=== PATIENT | female | born 1955 | race African-American/Black ===

== ENCOUNTER 2019-05-01 11:32 | Inpatient (IN) | payer MEDICAID ==
[~2019-05-01] VITALS: Ht 162.6 cm; Wt 151.5 kg
--- NOTE | 2019-05-01 11:38 | NUR ---
ED Nurse Note: Pt brought into ED w/ c/o SOB due to asthma. Pt states it has gotten worse for past 3 days. Pt also states she has trouble urinating. Pt is alert and orientedx4, ambulatory w/ cane. Pt had fall 5 days ago and injured pain L arm pain 7/10.
[2019-05-01] MEDS ORDERED: Albuterol/Ipratropium 3ml neb HHN ONE ×2 (11:45→13:15)
[2019-05-01] MEDS ORDERED: Solu-MEDROL 125mg Inj IVP ONE (11:45)
--- NOTE | 2019-05-01 11:45 | Emergency Room Report ---
History of Present Illness General Chief Complaint: Asthma Source: Patient Present Illness HPI Patient is a 64-year-old female presents after increased difficulty breathing for 1 week. Patient a prior history of asthma. She states that she takes albuterol only. Denies any recent fever. Reports having a moderate headache. Had no prior history of cardiac failure. She has some prior history of hypertension. Denies any recent leg pain or swelling. Had gradually worsening difficulty with breathing. She was brought in by EMS and was given breathing treatments in route without any improvement. She denies being a smoker. Patient denies any recent travel. COVID-19 risk:Travel to affect: No Has patient experienced tay: No Coronavirus symptoms experienc: Shortness of Breath Allergies: Coded Allergies: No Known Allergies (Unverified , 05/01/19) Patient History Past Medical History: see triage record Now: No Reviewed Nursing Documentation: PMH: Agreed; PSxH: Agreed Review of Systems All Other Systems: negative except mentioned in HPI Physical Exam Vital Signs Date Time Temp Pulse Resp B/P (MAP) Pulse Ox O2 Delivery O2 Flow Rate FiO2 05/01/19 11:24 97.9 84 18 144/74 (97) 98 Room Air Sp02 EP Interpretation: reviewed, normal General Appearance: normal inspection, alert, GCS 15, moderate distress, obese Head: atraumatic ENT: normal ENT inspection, hearing grossly normal, normal voice Neck: normal inspection, full range of motion, supple, no bony tend Respiratory: no respiratory distress, no retraction, no wheezing, wheezing Cardiovascular #1: regular rate, rhythm, no edema Gastrointestinal: normal inspection, normal bowel sounds, non tender, soft, no guarding, no hernia Genitourinary: no CVA tenderness Musculoskeletal: normal inspection, back normal, normal range of motion Neurologic: alert, motor strength/tone normal, physicist light and optics III-XII nml as tested, oriented x3, responsive, speech normal, normal inspection Psychiatric: normal inspection, judgement/insight normal, mood/affect normal Medical Decision Making Diagnostic Impression: Primary Impression: Asthma attack Additional Impression: Leukopenia ER Course patient presented for shortness of breath. DIfferential included but was not limited to anemia, pneumonia, pneumothorax, myocardial infarction, pericardial effusion, congestive heart failure, acidosis. Because of complexity of patient' s case laboratory tests and imaging studies were ordered.Chest x-ray read by radiology showed cardiomegaly with increased vascular congestion. Troponin was noted to be negative. Patient's laboratory testing showed some leukopenia. Dr. Billy Bae was contacted for inpatient managment due to Panel physician. Labs Test 05/01/19 11:38 05/01/19 13:10 White Blood Count 3.9 K/UL (4.8-10.8) Red Blood Count 4.70 M/UL (4.20-5.40) Hemoglobin 14.8 G/DL (12.0-16.0) Hematocrit 41.9 % (37.0-47.0) Mean Corpuscular Volume 89 FL (80-99) Mean Corpuscular Hemoglobin 31.5 PG (27.0-31.0) Mean Corpuscular Hemoglobin Concent 35.3 G/DL (32.0-36.0) Red Cell Distribution Width 11.4 % (11.6-14.8) Platelet Count 163 K/UL (150-450) Mean Platelet Volume 6.7 FL (6.5-10.1) Neutrophils (%) (Auto) 72.2 % (45.0-75.0) Lymphocytes (%) (Auto) 20.4 % (20.0-45.0) Monocytes (%) (Auto) 6.5 % (1.0-10.0) Eosinophils (%) (Auto) 0.0 % (0.0-3.0) Basophils (%) (Auto) 0.9 % (0.0-2.0) Prothrombin Time 10.6 SEC (9.30-11.50) Prothromb Time International Ratio 1.0 (0.9-1.1) Activated Partial Thromboplast Time 29 SEC (23-33) Sodium Level 138 MMOL/L (136-145) Potassium Level 3.4 MMOL/L (3.5-5.1) Chloride Level 100 MMOL/L (98-107) Carbon Dioxide Level 30 MMOL/L (21-32) Anion Gap 8 mmol/L (5-15) Blood Urea Nitrogen 10 mg/dL (7-18) Creatinine 1.2 MG/DL (0.55-1.30) Estimat Glomerular Filtration Rate 45.5 mL/min (>60) Glucose Level 154 MG/DL (74-106) Calcium Level 9.0 MG/DL (8.5-10.1) Total Bilirubin 0.6 MG/DL (0.2-1.0) Aspartate Amino Transf (AST/SGOT) 31 U/L (15-37) Alanine Aminotransferase (ALT/SGPT) 43 U/L (12-78) Alkaline Phosphatase 68 U/L (46-116) Troponin I 0.000 ng/mL (0.000-0.056) Pro-B-Type Natriuretic Peptide 73 pg/mL (0-125) Total Protein 8.0 G/DL (6.4-8.2) Albumin 4.0 G/DL (3.4-5.0) Globulin 4.0 g/dL Albumin/Globulin Ratio 1.0 (1.0-2.7) Urine Color Yellow Urine Appearance Clear Urine pH 5 (4.5-8.0) Urine Specific [place] 1.015 (1.005-1.035) Urine Protein 2+ (NEGATIVE) Urine Glucose (UA) Negative (NEGATIVE) Urine Ketones Negative (NEGATIVE) Urine Blood 1+ (NEGATIVE) Urine Nitrite Negative (NEGATIVE) Urine Bilirubin Negative (NEGATIVE) Urine Urobilinogen Normal MG/DL (0.0-1.0) Urine Leukocyte Esterase 1+ (NEGATIVE) Urine RBC 0-2 /HPF (0 - 2) Urine WBC 2-4 /HPF (0 - 2) Urine Squamous Epithelial Cells Few /LPF (NONE/OCC) Urine Bacteria Few /HPF (NONE) Urine Mucus Few /LPF (NONE/OCC) EKG Diagnostic Results Rate: normal Rhythm: NSR ST Segments: no acute changes Last Vital Signs Date Time Temp Pulse Resp B/P (MAP) Pulse Ox O2 Delivery O2 Flow Rate FiO2 05/01/19 11:24 97.9 84 18 144/74 (97) 98 Room Air Status: improved Disposition: HOME, SELF-CARE Condition: Stable Salvador Parrish MD May 01, 2019 11:45
[2019-05-01 12:00] VITALS: BP 140/71
[2019-05-01 12:21] LABS: BASOPHILS % (AUTO) 0.9 % (0.0-2.0); HEMATOCRIT 41.9 % (37.0-47.0); HEMOGLOBIN 14.8 G/DL (12.0-16.0); LYMPHOCYTES % (AUTO) 20.4 % (20.0-45.0); MEAN CORPUSCULAR VOLUME 89 FL (80-99); MONOCYTES % (AUTO) 6.5 % (1.0-10.0); NEUTROPHILS % (AUTO) 72.2 % (45.0-75.0); PLATELET COUNT 163 K/UL (150-450); RED CELL DISTRIBUTION WIDTH 11.4 % (11.6-14.8); WHITE BLOOD COUNT 3.9 K/UL (4.8-10.8)
[2019-05-01 12:26] LABS: ANION GAP 8 mmol/L (5-15); BLOOD UREA NITROGEN 10 mg/dL (7-18); CARBON DIOXIDE 30 MMOL/L (21-32); CHLORIDE 100 MMOL/L (98-107); CREATININE 1.2 MG/DL (0.55-1.30); POTASSIUM 3.4 MMOL/L (3.5-5.1); SODIUM 138 MMOL/L (136-145)
[2019-05-01 12:36] LABS: ALANINE AMINOTRANSFERASE 43 U/L (12-78); ALKALINE PHOSPHATASE 68 U/L (46-116); ASPARTATE AMINO TRANSFERASE 31 U/L (15-37); BILIRUBIN,TOTAL 0.6 MG/DL (0.2-1.0)
--- NOTE | 2019-05-01 13:12 | Diagnostic Imaging Report ---
EXAM: XR Chest, 1 View CLINICAL HISTORY: SOB TECHNIQUE: Frontal view of the chest. COMPARISON: None FINDINGS: Hardware: None. Lungs/pleura: Perihilar opacities. Pulmonary vasculature congestion. No pleural effusion or pneumothorax. Heart/mediastinum: Enlargement of the cardiac silhouette. Soft tissues: Unremarkable. Bones: No acute fracture. Upper abdomen: Normal. IMPRESSION: Coronary vasculature congestion and pulmonary edema.
[2019-05-01] MEDS ORDERED: Piperacillin/Tazobactam 3.375 GM in NS 110 ML IVPB ONE (13:15)
[2019-05-01 13:33] LABS: APPEARANCE,URINE CLEAR; BILIRUBIN, URINE NEGATIVE (NEGATIVE); GLUCOSE, URINE (UA) NEGATIVE (NEGATIVE); KETONES,URINE NEGATIVE (NEGATIVE); LEUKOCYTE ESTERASE ,URINE 1+ (NEGATIVE); NITRITE,URINE NEGATIVE (NEGATIVE); PH,URINE 5 (4.5-8.0); PROTEIN,URINE 2+ (NEGATIVE); UROBILINOGEN,URINE NORMAL MG/DL (0.0-1.0)
[2019-05-01 13:36] LABS: COLOR,URINE YELLOW
--- NOTE | 2019-05-01 14:30 | NUR ---
Mindy arshad in EDM - 05/01/19 at 1437 by [email or web address] ED Nurse Note: Report given to Kaelyn HERNANDEZ
[2019-05-01 14:34] VITALS: BP 130/70
--- NOTE | 2019-05-01 14:38 | NUR ---
ED Nurse Note: Report given to Tova WHITAKER.
--- NOTE | 2019-05-01 14:45 | NUR ---
ED Nurse Note: Spoke to frenting, will process cultures that were sent to lab 1300.
[2019-05-01] MEDS ORDERED: CARVEDILOL25 MG ORAL (14:50)
[2019-05-01] MEDS ORDERED: LISINOPRIL20 MG ORAL (14:50)
[2019-05-01] MEDS ORDERED: METFORMIN HCL500 M1 ORAL (14:50)
--- NOTE | 2019-05-01 15:15 | NUR ---
NURSE NOTES: RECEIVED PT FROM ER, REPORT RECEIVED FROM SHERMAN BARROW. PATIENT IN STABLE CONDITION. PATIENT PLACED IN BED, PUT ON MONITOR. UPON TRANSFER, NOTED TO HAVE SOB AND WAS PLACED ON 2L O2 VIA NASAL CANNULA. BELONGINGS LIST VERIFIED WITH PATIENT- HAS [employer] PHONE AT BEDSIDE. BED LOCKED AND IN LOWEST POSITION. CALL LIGHT IN REACH. WILL CONTINUE TO MONITOR PATIENT.
--- NOTE | 2019-05-01 15:20 | NUR ---
ED Nurse Note: Pt transferred to tele. Received by RN. Pt took all belongings. Pt taken up by monitor.
[2019-05-01 16:20] VITALS: BP 137/84
[2019-05-01] MEDS ORDERED: CYMBALTA60 MG ORAL (17:26)
[2019-05-01] MEDS ORDERED: NORCO 10-325 T1 EACH ORAL (17:26)
[2019-05-01] MEDS ORDERED: FLOVENT2 PUFF2 INH (17:26)
[2019-05-01] MEDS ORDERED: OMEPRAZOLE40 M1 ORAL (17:26)
[2019-05-01] MEDS ORDERED: SYNTHROID150 MCG ORAL (17:26)
[2019-05-01] MEDS ORDERED: ATORVASTATIN CA10 MG ORAL (17:26)
[2019-05-01] MEDS ORDERED: VENTOLIN HFA18 GM INH (17:26)
[2019-05-01] MEDS ORDERED: ASPIR 8181 MG ORAL (17:26)
[2019-05-01] MEDS ORDERED: LISINOPRIL-HCT1 EAC2 ORAL (17:26)
[2019-05-01] MEDS: metFORMIN 500mg tab ORAL SCH (18:56)
--- NOTE | 2019-05-01 19:32 | NUR ---
HAND-OFF: Report given to Larisa Garcia RN. Patient stable. Plan of care endorsed.
[2019-05-01] MEDS: Albuterol/Ipratropium 3ml neb HHN PRN (19:39)
--- NOTE | 2019-05-01 19:56 | NUR ---
NURSE NOTES: Received patient report from SHERMAN Cool and SHERMAN Crockett. Patient AO X 2. There are no signs of distress noted at this time. IV checked, patent and flushed. Bed in the lowest position, call light within reach, bed alarm on, and brakes on. Will continue plan of care. Addendum: 05/02/19 at 0122 by Marcella Rice RN AOx4
[2019-05-01 20:00] VITALS: BP 133/71
--- NOTE | 2019-05-01 20:00 | History and Physical Report ---
DATE OF ADMISSION: 05/01/2019 HISTORY OF PRESENT ILLNESS: This is a 64-year-old female, came to the emergency room for having short of breath, hypoxia for many months, has been progressing well. The patient has history of underlying asthma, has been taking multiple inhalers. The patient has lot of wheezing right now. She has cough, no sputum production. PAST MEDICAL HISTORY: Hypertension, comorbid obesity, asthma. HOME MEDICATIONS: She is taking losartan, ProAir. She is taking also Flonase. ALLERGIES: NKA. FAMILY HISTORY: Noncontributory. SOCIAL HISTORY: Lives at home with the family. She denies any smoking currently. Denies any illegal drugs. REVIEW OF SYSTEMS: Generalized weakness tired, cough, short of breath. PHYSICAL EXAMINATION: VITAL SIGNS: Blood pressure is 160/70, pulse 84 to 100, respirations 18 to 24, temperature is no fever. SKIN: Good skin turgor. HEENT: NAD. Pharynx is clear. Trachea midline. Bilateral decreased breath sounds. Scattered wheezing and crackles. CARDIOVASCULAR: Regular rhythm. No gallop. No murmur. ABDOMEN: Soft, positive bowel sounds, nontender. EXTREMITIES: No edema. GENITOURINARY: Deferred. LABORATORY DATA: Laboratories are unremarkable. IMAGING: Chest x-ray is hyperinflation and no pneumonia. Assessment, EKG is nonspecific ST and T-wave changes. Troponins are negative. is pending. ASSESSMENT: 1. Acute COPD exacerbation. 2. Acute asthma. 3. Hypertension. 4. Comorbid obesity. 5. Congestive heart failure. PLAN: We will admit on telemetry bed. Start IV steroid, Solu-Medrol increase to 125 mg every 8 hours. Continue DuoNeb every 4 hours as needed. Continue lisinopril, continue Protonix, IV antibiotics, consider pulmonary consult. Dr. Grayson was called. Buddy Bae M.D. DR: ASIA JOB#: [id number] CC:
[2019-05-01] MEDS: Solu-MEDROL 125mg Inj IVP SCH (20:42)
[2019-05-01] MEDS: Carvedilol 25mg Tab ORAL SCH (20:44)
[2019-05-01] MEDS: HYDROcodone/Acetamin 10/325 tab ORAL PRN (20:45)
[2019-05-01] MEDS ORDERED: Solu-MEDROL 40mg Inj IVP SCH (21:00)
[2019-05-02] VITALS: BP 143/75
--- NOTE | 2019-05-02 01:15 | NUR ---
NURSE NOTES: Called Dr. Bae regarding sliding scale for patient and DVT prophylaxis. Received new order for average sliding scale, but per Dr. Bae, patient does not need DVT prophylaxis. Noted and carried out.
[2019-05-02 04:00] VITALS: BP 140/71
[2019-05-02] MEDS: NovoLOG Insulin Flexpen SUBQ SCH ×5 (06:30→20:58)
--- NOTE | 2019-05-02 07:24 | NUR ---
HAND-OFF: Report given to SHERMAN Cool and SHERMAN Crockett. Patient shows no signs of distress or pain. Plan of care endorsed.
--- NOTE | 2019-05-02 07:30 | NUR ---
NURSE NOTES: RECEIVED REPORT FROM SHERMAN MCKENNA. PATIENT AWAKE IN BED & ABLE TO MAKE NEEDS KNOWN. EATING BREAKFAST. NO COMPLAINTS OF PAIN OR DISCOMFORT. BREATHING IS EVEN AND UNLABORED ON 2LPM O2 VIA NASAL CANNULA- NO S/SX OF DISTRESS AT THIS TIME. BED LOCKED AND IN LOWEST POSITION. CALL LIGHT IN REACH. WILL CONTINUE TO MONITOR.
[2019-05-02 08:00] VITALS: BP 116/62
[2019-05-02] MEDS ORDERED: Losartan 50mg tab ORAL SCH (09:00)
[2019-05-02] MEDS: metFORMIN 500mg tab ORAL SCH ×2 (09:30→17:45)
[2019-05-02] MEDS: Carvedilol 25mg Tab ORAL SCH ×2 (09:31→20:56)
[2019-05-02] MEDS: Aspirin EC 81mg tab ORAL SCH (09:31)
[2019-05-02] MEDS: Lisinopril 20mg tab ORAL SCH (09:31)
[2019-05-02] MEDS: Solu-MEDROL 125mg Inj IVP SCH ×2 (09:32→20:55)
[2019-05-02] MEDS: hydroCHLOROthiazide 25mg cap ORAL SCH (09:32)
--- NOTE | 2019-05-02 09:54 | Diagnostic Imaging Report ---
EXAM: XR Left Shoulder Complete, 2 or More Views CLINICAL HISTORY: FALL TECHNIQUE: Two or more views of the left shoulder. COMPARISON: No relevant prior studies available. FINDINGS: Bones/joints: Mild widening of the left acromioclavicular joint space to 9.5 mm on the internal rotation frontal view of the shoulder, which may suggest a low-grade sprain. No abnormal elevation of the distal clavicle relative to the acromion. Moderate to severe degenerative changes in the left glenohumeral joint with prominent osteophytes adjacent to the humeral head. No acute displaced fracture seen. Soft tissues: Unremarkable. Vasculature: Atherosclerotic calcifications are noted within the aortic arch. IMPRESSION: 1. Mild widening of the left acromioclavicular joint space to 9.5 mm, which may suggest a low-grade sprain. No abnormal elevation of the distal clavicle relative to the acromion. Recommend correlation with point tenderness. 2. Moderate to severe degenerative changes in the left glenohumeral joint with prominent osteophytes adjacent to the humeral head.
[2019-05-02] MEDS: Albuterol/Ipratropium 3ml neb HHN PRN ×2 (10:11→20:18)
[2019-05-02] MEDS: Flovent 110mcg Inhaler - 12gm INH SCH ×3 (10:27→20:36)
[2019-05-02 12:00] VITALS: BP 126/60
--- NOTE | 2019-05-02 14:43 | General Progress Note ---
Assessment/Plan Status: doing well, stable Assessment/Plan: Ms. Savage is a 64 F with hx of CHF, HTN, asthma, COPD, presenting with acute COPD exacerbation. #Acute COPD exacerbation #Acute asthma exacerbation -Pulmonology consult appreciated. -Continue IV solumedrol 125 mg BID (04/30 - ) -ATC duonebs. #CHF #HTN #HLD -Continue ASA -Continue Coreg 25 BID -Continue Losartan 100 daily -Continue HCTZ 25 daily -Continue Lisinopril 20 daily #DM2 -ISS, POCT. -Metformin #GERD -Protonix #Hypothyroidism -Continue synthroid 150 mcg daily. Extra 36 mins spent on chart review, including labs, meds, imaging, prior physician documentation. Subjective Date patient seen: May 02, 2019 ROS Limited/Unobtainable: No Constitutional: Denies: no symptoms, chills, diaphoresis, fever, malaise, weakness, other HEENT: Denies: no symptoms, eye pain, blurred vision, tearing, double vision, ear pain, ear discharge, nose pain, nose congestion, throat pain, throat swelling, mouth pain, mouth swelling, other Cardiovascular: Denies: no symptoms, chest pain, edema, irregular heart rate, lightheadedness, palpitations, syncope, other Respiratory: Reports: cough, shortness of breath, wheezing Gastrointestinal/Abdominal: Denies: no symptoms, abdomen distended, abdominal pain, black stools, tarry stools, blood in stool, constipated, diarrhea, difficulty swallowing, nausea, poor appetite, poor fluid intake, rectal bleeding , vomiting, other Genitourinary: Denies: no symptoms, burning, discharge, frequency, flank pain, hematuria, incontinence, pain, urgency, other Neurologic/Psychiatric: Denies: no symptoms, anxiety, depressed, emotional problems, headache, numbness, paresthesia, pre-existing deficit, seizure, tingling, tremors, weakness, other Endocrine: Denies: no symptoms, excessive sweating, flushing, intolerance to cold, intolerance to heat, increased hunger, increased thirst, increased urine, unexplained weight gain, unexplained weight loss, other Hematologic/Lymphatic: Denies: no symptoms, anemia, easy bleeding, easy bruising, other Allergies: Coded Allergies: No Known Allergies (Unverified , 05/01/19) Subjective resting in bed, SOB much improved. wheezing improved. denies any other issues Objective Last 24 Hour Vital Signs Date Time Temp Pulse Resp B/P (MAP) Pulse Ox O2 Delivery O2 Flow Rate FiO2 05/02/19 12:00 98.1 63 18 126/60 (82) 91 05/02/19 12:00 65 05/02/19 10:29 68 18 96 Nasal Cannula 2.0 28 05/02/19 10:29 64 18 95 Nasal Cannula 2.0 28 05/02/19 10:28 98.1 05/02/19 10:12 93 Nasal Cannula 2.0 28 05/02/19 10:12 67 24 93 Nasal Cannula 2.0 28 05/02/19 10:11 64 18 97 Nasal Cannula 2.0 28 67 24 93 05/02/19 09:31 116/62 05/02/19 09:31 64 116/62 05/02/19 09:00 Nasal Cannula 2.0 05/02/19 08:00 65 05/02/19 08:00 98.1 64 18 116/62 (80) 91 05/02/19 04:00 70 05/02/19 04:00 98.6 72 20 140/71 (94) 94 05/02/19 00:00 98.0 68 20 143/75 (97) 93 05/02/19 00:00 70 05/01/19 21:00 Nasal Cannula 2.0 05/01/19 20:44 83 133/71 05/01/19 20:00 80 05/01/19 20:00 98.2 83 20 133/71 (91) 93 05/01/19 19:45 88 18 92 Nasal Cannula 2.0 28 05/01/19 19:44 Nasal Cannula 2.0 28 05/01/19 19:41 91 18 98 Nasal Cannula 2.0 28 88 18 92 05/01/19 16:20 98.4 75 22 137/84 (101) 96 05/01/19 16:00 2.0 05/01/19 16:00 Nasal Cannula 2.0 05/01/19 15:39 75 05/01/19 15:20 97.9 84 18 127/77 99 Nasal Cannula 2.0 Intake and Output 05/01/19 05/02/19 19:00 07:00 Intake Total 440 ml 240 ml Output Total 1000 ml Balance 440 ml -760 ml Intake Oral 440 ml 240 ml Output Urine Total 1000 ml Height (Feet): 5 Height (Inches): 4.00 Weight (Pounds): 334 General Appearance: no apparent distress, alert Neck: supple Cardiovascular: normal rate, regular rhythm Respiratory/Chest: lungs clear, normal breath sounds, no respiratory distress Abdomen: non tender, soft Neurologic: alert Billy Bae MD May 02, 2019 14:43
[2019-05-02 16:00] VITALS: BP 117/72
--- NOTE | 2019-05-02 18:40 | NUR ---
NURSE NOTES: RECEIVED ORDER TO CHANGE PRIMARY MD FROM Malka HUSSEIN TO Yoselin VIRAMONTES LEFT VOICEMAIL FOR DR. VIRAMONTES REGARDING REQUEST TO CHANGE DIET ORDER TO REGULAR TEXTURE. AWAITING CALL BACK. Addendum: 05/02/19 at 1857 by Keira Rodriguez RN FAXED ORDER TO ER ADMITTING
--- NOTE | 2019-05-02 19:30 | NUR ---
HAND-OFF: Report given to SHERMAN MADRID. PATIENT IN STABLE CONDITION. PLAN OF CARE ENDORSED.
--- NOTE | 2019-05-02 19:47 | NUR ---
NURSE NOTES: RECEIVED PATIENT RESTING IN BED, NO COMPLAINTS OF PAIN OR SOB AT THIS TIME. FALL PRECAUTIONS IN PLACE: CALL LIGHT, BEDSIDE TABLE AND COMMODE WITHIN REACH, BED IN LOW POSITION AND BED ALARM ON. PLAN OF CARE REVIEWED.
[2019-05-02 20:00] VITALS: BP 124/73
[2019-05-03] VITALS: BP 100/62
[2019-05-03 04:00] VITALS: BP 129/80
[2019-05-03] MEDS: NovoLOG Insulin Flexpen SUBQ SCH ×4 (06:06→21:18)
--- NOTE | 2019-05-03 07:18 | NUR ---
HAND-OFF: Report given to SHERMAN WAN. PATIENT ASLEEP, NO SIGNS OF DISTRESS NOTED.
--- NOTE | 2019-05-03 07:30 | NUR ---
NURSE NOTES: Received pt from [facility]IT[facility]. Pt is sleeping, pt has NC 2LMP. pt has intact iv access RAC 20g SL. pt is on continues cardiac monitoring. no complain of pain at this moment. All needs attended, bed is locked and is in the lowest position, call light within easy reach. will continue to monitor.
[2019-05-03 08:00] VITALS: BP 131/75
[2019-05-03] MEDS: Solu-MEDROL 125mg Inj IVP SCH ×2 (08:58→21:21)
[2019-05-03] MEDS: Carvedilol 25mg Tab ORAL SCH ×2 (08:58→21:20)
[2019-05-03] MEDS: metFORMIN 500mg tab ORAL SCH ×2 (08:59→17:02)
[2019-05-03] MEDS: Lisinopril 20mg tab ORAL SCH (08:59)
[2019-05-03] MEDS: hydroCHLOROthiazide 25mg cap ORAL SCH (09:00)
[2019-05-03] MEDS: Aspirin EC 81mg tab ORAL SCH (09:00)
[2019-05-03] MEDS: Flovent 110mcg Inhaler - 12gm INH SCH ×2 (09:28→19:45)
[2019-05-03] MEDS: Albuterol/Ipratropium 3ml neb HHN PRN (09:28)
--- NOTE | 2019-05-03 11:27 | NUR ---
NURSE NOTES: Dr WISE visited pt and is aware about T, K, cough and other lab results and V/S, no new order to RN. He will F/U.
[2019-05-03] MEDS: Furosemide 40mg tab ORAL SCH (11:59)
[2019-05-03 12:00] VITALS: BP 127/72
--- NOTE | 2019-05-03 13:24 | NUR ---
CASE MANAGEMENT:REVIEW 64 YR OLD FEMALE BIBA FROM HOME CC: SOB. WHEEZING PMH: H/O ASTHMA SI: ASTHMA EXACERBATION. LEUKOPENIA 97.8 84 18 144/74 98% ON RA WBC-3.9 K-3.4 GLUCOSE+154 IS: ALBUTEROL HHN FIXER BOARDING ROOM PLACED ON 2L/NC IV ZOSYN DUONEB HHN X2 IV SOLUMEDROL TYLENOL PO CHEST XRAY : TO TELEMETRY DCP: FROM HOME
--- NOTE | 2019-05-03 15:15 | Consultation ---
History of Present Illness General Date patient seen: May 03, 2019 Time patient seen: 15:09 Chief Complaint: Asthma Present Illness HPI This is a 64-year-old female,came to the emergency room for having short of breath, hypoxia for many months, has been progressing well. The patient has history of underlying asthma, has been taking multiple inhalers. The patient has lot of wheezing right now. She has cough, no sputum production. She has a hx of HTN. Cardiology consulted for heart failure. Troponin negative. patient on nasal canula. CXR with pulmonary congestion. Allergies: Coded Allergies: No Known Allergies (Unverified , 05/01/19) Medication History Scheduled Albuterol Sulfate (Ventolin Hfa), 2 PUFFS INH EVERY 6 HOURS, (Reported) Aspirin* (Aspir 81*), 81 MG ORAL DAILY, (Reported) Atorvastatin Calcium* (Lipitor*), 10 MG ORAL BEDTIME, (Reported) Carvedilol* (Carvedilol*), 25 MG ORAL EVERY 12 HOURS, (Reported) Fluticasone Propionate (Flovent Hfa), 1 PUFFS INH TWICE A DAY, (Reported) Levothyroxine Sodium* (Synthroid*), 150 MCG ORAL DAILY, (Reported) Lisinopril/Hydrochlorothiazide 20-25 Mg Tab (Lisinopril-Hctz 20-25 Mg Tab), 1 TAB ORAL DAILY, (Reported) Metformin Hcl* (Metformin Hcl*), 500 MG ORAL TWICE A DAY, (Reported) Omeprazole (Omeprazole), 40 MG ORAL DAILY, (Reported) Scheduled PRN Hydrocodone Bit/Acetaminophen 10-325* ([place] 10-325*), 1 TAB ORAL TID PRN for For Pain, (Reported) Discontinued Medications Duloxetine Hcl* (Cymbalta*), 60 MG ORAL DAILY, (Reported) Discontinued Reason: Pt stopped taking med Lisinopril (Lisinopril*), 20 MG ORAL DAILY, (Reported) Discontinued Reason: Medication dose changed Patient History Healthcare decision maker Resuscitation status Full Code Advanced Directive on File Review of Systems Constitutional: Reports: no symptoms Eye: Reports: no symptoms ENT: Reports: no symptoms Respiratory: Reports: shortness of breath, TRIPP Cardiovascular: Reports: no symptoms Gastrointestinal: Reports: no symptoms Genitourinary: Reports: no symptoms Musculoskeletal: Reports: no symptoms Skin: Reports: no symptoms Psychiatric: Reports: no symptoms Neurological: Reports: no symptoms Endocrine: Reports: no symptoms Hematologic/Lymphatic: Reports: no symptoms Physical Exam General Appearance: no apparent distress, alert Lines, tubes and drains: peripheral HEENT: normocephalic, atraumatic, anicteric, mucous membranes moist, PERRL Neck: non-tender, normal alignment, supple, normal inspection Respiratory/Chest: chest wall non-tender, accessory muscle use, crackles/rales , rhonchi - bilaterally Cardiovascular/Chest: normal peripheral pulses, normal rate, regular rhythm, regularly irregular, no gallop/murmur, no JVD Abdomen: normal bowel sounds, non tender, soft, no organomegaly, no mass Extremities: normal range of motion, non-tender, normal inspection, no calf tenderness, normal capillary refill, non-pitting Skin Exam: normal pigmentation, warm/dry, cyanotic Neurologic: booking officer II-XII grossly normal, no motor/sensory deficits Last 24 Hour Vital Signs Date Time Temp Pulse Resp B/P (MAP) Pulse Ox O2 Delivery O2 Flow Rate FiO2 05/03/19 12:00 98.1 66 20 127/72 (90) 98 05/03/19 11:40 73 05/03/19 09:25 64 20 97 Nasal Cannula 2.0 28 66 20 92 05/03/19 09:24 66 20 97 Nasal Cannula 2.0 28 05/03/19 09:22 67 20 92 Nasal Cannula 2.0 28 05/03/19 09:21 92 Nasal Cannula 2.0 28 05/03/19 09:20 67 20 92 Nasal Cannula 2.0 28 05/03/19 09:00 Nasal Cannula 2.0 05/03/19 08:59 131/75 05/03/19 08:58 68 131/75 05/03/19 08:50 72 05/03/19 08:00 99.9 68 20 131/75 (93) 98 05/03/19 04:00 97.9 79 18 129/80 (96) 95 05/03/19 04:00 83 05/03/19 00:00 97.5 67 18 100/62 (75) 93 05/03/19 00:00 64 05/02/19 21:00 Nasal Cannula 2.0 05/02/19 20:56 70 124/73 05/02/19 20:20 75 20 94 Nasal Cannula 2.0 28 05/02/19 20:20 94 Nasal Cannula 2.0 28 05/02/19 20:20 67 18 96 Nasal Cannula 2.0 28 05/02/19 20:20 66 18 96 Nasal Cannula 2.0 28 05/02/19 20:20 65 18 96 Nasal Cannula 2.0 28 05/02/19 20:00 98.1 70 18 124/73 (90) 94 05/02/19 20:00 68 05/02/19 16:00 63 05/02/19 16:00 97.9 67 20 117/72 (87) 91 Intake and Output 05/02/19 05/03/19 19:00 07:00 Intake Total 850 ml 240 ml Output Total 450 ml Balance 850 ml -210 ml Intake Oral 850 ml 240 ml Output Urine Total 450 ml # Voids 2 2 # Bowel Movements 2 Height (Feet): 5 Height (Inches): 4.00 Weight (Pounds): 334 Medications Current Medications Medications (Trade) Dose Ordered Sig/Gabby Route PRN Reason Start Time Stop Time Status Last Admin Dose Admin Acetaminophen (Tylenol) 650 mg Q4H PRN ORAL Mild Pain/Temp > 100.5 05/01/19 19:15 05/31/19 19:14 05/03/19 08:59 Acetaminophen/ Hydrocodone Bitart ([place] 10/325) 1 tab TIDPRN PRN ORAL Moderate Pain (Pain Scale 4-6) 05/01/19 17:30 05/08/19 17:29 05/01/19 20:45 Albuterol/ Ipratropium (Albuterol/ Ipratropium) 3 ml Q4H PRN HHN Shortness of Breath 05/01/19 17:30 05/06/19 17:29 05/03/19 09:28 Aspirin (Ecotrin) 81 mg DAILY ORAL 05/02/19 09:00 06/16/19 08:59 05/03/19 09:00 Atorvastatin Calcium (Lipitor) 10 mg BEDTIME ORAL 05/01/19 21:00 05/31/19 20:59 05/02/19 20:55 Carvedilol (Coreg) 25 mg EVERY 12 HOURS ORAL 05/01/19 21:00 05/31/19 20:59 05/03/19 08:58 Dextrose (Dextrose 50%) 25 ml Q30M PRN IV Hypoglycemia 05/02/19 01:15 06/01/19 01:14 Dextrose (Dextrose 50%) 50 ml Q30M PRN IV Hypoglycemia 05/02/19 01:15 06/01/19 01:14 Fluticasone Propionate (Flovent 110 mcg) 2 puff BIDRT INH 05/02/19 10:00 06/01/19 09:59 05/03/19 09:28 Furosemide (Lasix) 40 mg DAILY ORAL 05/03/19 11:45 06/02/19 11:44 05/03/19 11:59 Hydrochlorothiazide (Hydrodiuril) 25 mg DAILY ORAL 05/02/19 09:00 06/01/19 08:59 05/03/19 09:00 Insulin Aspart (NovoLOG) BEFORE MEALS AND HS SUBQ 05/02/19 06:30 06/01/19 06:29 05/03/19 11:40 Levothyroxine Sodium (Synthroid) 150 mcg ACBREAKFAST ORAL 05/02/19 06:30 06/01/19 06:29 05/03/19 06:02 Lisinopril (PriniviL) 20 mg DAILY ORAL 05/02/19 09:00 06/01/19 08:59 05/03/19 08:59 Metformin HCl (Glucophage) 500 mg TWICE A DAY ORAL 05/01/19 18:00 05/31/19 17:59 05/03/19 08:59 Methylprednisolone Sodium Succinate (Solu-MEDROL) 40 mg EVERY 12 HOURS IVP 05/03/19 21:00 06/02/19 20:59 Pantoprazole (Protonix) 40 mg DAILY ORAL 05/02/19 09:00 06/01/19 08:59 05/03/19 09:00 Assessment/Plan Status: stable Assessment/Plan: Assessment 1. Acute COPD exacerbation. 2. Acute asthma. 3. Hypertension. 4. Comorbid obesity. 5. Congestive heart failure. 6. Diabetes Plan: Echocardiogram Continue diuresis with lasix/HCTZ Monitor electrolytes pulmonary toilet Continue aspirin, coreg, lisinopril Serial CXR IV steroids for Asthma/COPD Outpatient stress test Matt Mckoy MD May 03, 2019 15:15
--- NOTE | 2019-05-03 15:47 | NUR ---
*-* INSURANCE *-* ALL AVAILABLE CLINICALS HAVE BEEN FAXED TO: [facility] P: [phone] F: [phone] & SAGAR DONOVAN FAX ALL CLINICLAS TO [phone]
[2019-05-03 15:56] LABS: HEMATOCRIT 41.3 % (37.0-47.0); HEMOGLOBIN 14.4 G/DL (12.0-16.0); MEAN CORPUSCULAR VOLUME 90 FL (80-99); PLATELET COUNT 178 K/UL (150-450); RED BLOOD COUNT 4.59 M/UL (4.20-5.40); RED CELL DISTRIBUTION WIDTH 11.3 % (11.6-14.8); WHITE BLOOD COUNT 12.5 K/UL (4.8-10.8)
[2019-05-03 16:00] VITALS: BP 128/70
[2019-05-03 16:15] LABS: ANION GAP 17 mmol/L (5-15); BLOOD UREA NITROGEN 29 mg/dL (7-18); CALCIUM 9.1 MG/DL (8.5-10.1); CARBON DIOXIDE 22 MMOL/L (21-32); CHLORIDE 97 MMOL/L (98-107); CREATININE 1.5 MG/DL (0.55-1.30); POTASSIUM 4.1 MMOL/L (3.5-5.1); SODIUM 136 MMOL/L (136-145)
--- NOTE | 2019-05-03 16:29 | General Progress Note ---
Assessment/Plan Status: doing well, stable Assessment/Plan: Ms. Savage is a 64 F with hx of CHF, HTN, asthma, COPD, presenting with acute COPD exacerbation. #Acute COPD exacerbation #Acute asthma exacerbation -Pulmonology consult appreciated. -Continue IV solumedrol 40 mg daily (04/30 - ) -Per pulm, likely can d/c home tmrw. -ATC duonebs. #CHF #HTN #HLD -Continue ASA -Continue Coreg 25 BID -Continue Losartan 100 daily -Continue HCTZ 25 daily -Continue Lisinopril 20 daily -Lasix started per cardiology. -TTE -Cardiology consult apprciated. #DM2 -ISS, POCT. -Metformin #GERD -Protonix #Hypothyroidism -Continue synthroid 150 mcg daily. Time spent: 36 mins, 50% on counseling and coordination of care. Subjective Date patient seen: May 03, 2019 Constitutional: Denies: no symptoms, chills, diaphoresis, fever, malaise, weakness, other HEENT: Denies: no symptoms, eye pain, blurred vision, tearing, double vision, ear pain, ear discharge, nose pain, nose congestion, throat pain, throat swelling, mouth pain, mouth swelling, other Cardiovascular: Denies: no symptoms, chest pain, edema, irregular heart rate, lightheadedness, palpitations, syncope, other Respiratory: Denies: no symptoms, cough, orthopnea, shortness of breath, SOB with excertion, SOB at rest, sputum, stridor, wheezing, other Gastrointestinal/Abdominal: Denies: no symptoms, abdomen distended, abdominal pain, black stools, tarry stools, blood in stool, constipated, diarrhea, difficulty swallowing, nausea, poor appetite, poor fluid intake, rectal bleeding , vomiting, other Genitourinary: Denies: no symptoms, burning, discharge, frequency, flank pain, hematuria, incontinence, pain, urgency, other Neurologic/Psychiatric: Denies: no symptoms, anxiety, depressed, emotional problems, headache, numbness, paresthesia, pre-existing deficit, seizure, tingling, tremors, weakness, other Endocrine: Denies: no symptoms, excessive sweating, flushing, intolerance to cold, intolerance to heat, increased hunger, increased thirst, increased urine, unexplained weight gain, unexplained weight loss, other Hematologic/Lymphatic: Denies: no symptoms, anemia, easy bleeding, easy bruising, other Allergies: Coded Allergies: No Known Allergies (Unverified , 05/01/19) Subjective resting in bed. ambulating back and from the bathroom. discussed home health but refused. lives with 7 roommates, has also caregiver. denies any SOB, chest pain. Objective Last 24 Hour Vital Signs Date Time Temp Pulse Resp B/P (MAP) Pulse Ox O2 Delivery O2 Flow Rate FiO2 05/03/19 16:00 98.1 73 20 128/70 (89) 98 05/03/19 15:34 72 05/03/19 12:00 98.1 66 20 127/72 (90) 98 05/03/19 11:40 73 05/03/19 09:25 64 20 97 Nasal Cannula 2.0 28 66 20 92 05/03/19 09:24 66 20 97 Nasal Cannula 2.0 28 05/03/19 09:22 67 20 92 Nasal Cannula 2.0 28 05/03/19 09:21 92 Nasal Cannula 2.0 28 05/03/19 09:20 67 20 92 Nasal Cannula 2.0 28 05/03/19 09:00 Nasal Cannula 2.0 05/03/19 08:59 131/75 05/03/19 08:58 68 131/75 05/03/19 08:50 72 05/03/19 08:00 99.9 68 20 131/75 (93) 98 05/03/19 04:00 97.9 79 18 129/80 (96) 95 05/03/19 04:00 83 05/03/19 00:00 97.5 67 18 100/62 (75) 93 05/03/19 00:00 64 05/02/19 21:00 Nasal Cannula 2.0 05/02/19 20:56 70 124/73 05/02/19 20:20 75 20 94 Nasal Cannula 2.0 28 05/02/19 20:20 94 Nasal Cannula 2.0 28 05/02/19 20:20 67 18 96 Nasal Cannula 2.0 28 05/02/19 20:20 66 18 96 Nasal Cannula 2.0 28 05/02/19 20:20 65 18 96 Nasal Cannula 2.0 28 05/02/19 20:00 98.1 70 18 124/73 (90) 94 05/02/19 20:00 68 Intake and Output 05/02/19 05/03/19 19:00 07:00 Intake Total 850 ml 240 ml Output Total 450 ml Balance 850 ml -210 ml Intake Oral 850 ml 240 ml Output Urine Total 450 ml # Voids 2 2 # Bowel Movements 2 Laboratory Tests 05/03/19 15:05: White Blood Count 12.5H, Red Blood Count 4.59, Hemoglobin 14.4, Hematocrit 41.3 , Mean Corpuscular Volume 90, Mean Corpuscular Hemoglobin 31.3H, Mean Corpuscular Hemoglobin Concent 34.8, Red Cell Distribution Width 11.3L, Platelet Count 178, Mean Platelet Volume 7.3, Neutrophils (%) (Auto) , Lymphocytes (%) (Auto) , Monocytes (%) (Auto) , Eosinophils (%) (Auto) , Basophils (%) (Auto) , Neutrophils % (Manual) [Pending], Lymphocytes % (Manual) [Pending], Platelet Estimate [Pending], Platelet Morphology [Pending], Sodium Level [Pending], Potassium Level [Pending], Chloride Level [Pending], Carbon Dioxide Level [Pending], Blood Urea Nitrogen [Pending], Creatinine [Pending], Estimat Glomerular Filtration Rate [Pending], Glucose Level [Pending], Calcium Level [Pending] Height (Feet): 5 Height (Inches): 4.00 Weight (Pounds): 334 General Appearance: alert Neck: supple Cardiovascular: normal rate, regular rhythm Respiratory/Chest: lungs clear, normal breath sounds Abdomen: non tender, soft Neurologic: alert, oriented x 3 Milady Ryder M.D. May 03, 2019 16:29
--- NOTE | 2019-05-03 19:30 | NUR ---
HAND-OFF: Report given to SHERMAN DYER. Pt is awake and stable.
--- NOTE | 2019-05-03 19:45 | Consultation ---
DATE OF CONSULTATION: 05/03/2019 PULMONARY CONSULTATION CONSULTING PHYSICIAN: Brad Grayson M.D. HISTORY OF PRESENT ILLNESS: This is a 64-year-old female with history of asthma on albuterol. She came to the hospital with cough and shortness of breath. She also reported a headache. There are no heart conditions reported. There is no leg swelling or pain. She was given breathing treatments with improvement this morning, she states she is sleeping significantly better. PAST MEDICAL HISTORY: Notable for asthma only. HOME MEDICATIONS: Reviewed and reconciled. REVIEW OF SYSTEMS: Denies any headaches, hematemesis, melena, hematochezia, or weight loss. PHYSICAL EXAMINATION: GENERAL: Reveals a 64-year-old female. VITAL SIGNS: Blood pressure 140/70, heart rate 84, respirations 20, she is afebrile. HEENT: Unremarkable. CHEST: Decreased breath sounds bilaterally with normal heart sounds. ABDOMEN: Soft. EXTREMITIES: There is no edema. LABORATORY AND DIAGNOSTIC DATA: Laboratory testing shows white count , otherwise normal CBC and BMP. Potassium is 3.4. Microbiology, nasal swab is negative for influenza A and B. There is no travel history. Blood culture is negative. Imaging studies, x-ray chest was obtained, which shows evidence for mild pulmonary edema. IMPRESSION: 1. Probable mild pulmonary edema. 2. Bronchial asthma. 3. Leukopenia. 4. Hypokalemia. DISCUSSION: Admit to the hospital. We will obtain 2D echo. The patient is clinically better with breathing treatments, Coreg, diuresis, and IV steroids. I will decrease steroids. Obtain 2D echo. Add daily Lasix. We will follow. Brad Grayson M.D. DR: MANNY JOB#: [id number] CC:
--- NOTE | 2019-05-03 19:50 | NUR ---
NURSE NOTES: Received from SHERMAN Trivedi. Patient awake, alert, and talkative. Bed in lowest position. Call light placed within reach. Will continue to monitor.
[2019-05-03 20:00] VITALS: BP 115/53
[2019-05-03] MEDS: HYDROcodone/Acetamin 10/325 tab ORAL PRN (21:21)
[2019-05-04 00:29] VITALS: BP 138/70
--- NOTE | 2019-05-04 02:14 | NUR ---
NURSE NOTES: Called and left a message with Dr. Bae regarding patient's deep cough pain. Awaiting call back.
[2019-05-04 04:31] VITALS: BP 121/73
[2019-05-04] MEDS: NovoLOG Insulin Flexpen SUBQ SCH ×2 (05:38→12:04)
[2019-05-04 07:08] LABS: HEMATOCRIT 41.6 % (37.0-47.0); HEMOGLOBIN 14.8 G/DL (12.0-16.0); MEAN CORPUSCULAR VOLUME 89 FL (80-99); PLATELET COUNT 188 K/UL (150-450); RED BLOOD COUNT 4.68 M/UL (4.20-5.40); RED CELL DISTRIBUTION WIDTH 11.4 % (11.6-14.8); WHITE BLOOD COUNT 11.9 K/UL (4.8-10.8)
--- NOTE | 2019-05-04 07:27 | NUR ---
HAND-OFF: Report given to SHERMAN Trivedi. Patient stable. Plan of care endorsed.
--- NOTE | 2019-05-04 07:29 | NUR ---
NURSE NOTES: Received pt from MANISHA WHITAKER. Pt is eating breakfast by observation, pt has NC 2LMP. pt has intact iv access RAC 20g SL. pt is on continues cardiac monitoring. no complain of pain at this moment. All needs attended, bed is locked and is in the lowest position, call light within easy reach. will continue to monitor.
[2019-05-04 07:30] LABS: ANION GAP 11 mmol/L (5-15); BLOOD UREA NITROGEN 29 mg/dL (7-18); CALCIUM 9.4 MG/DL (8.5-10.1); CARBON DIOXIDE 27 MMOL/L (21-32); CHLORIDE 99 MMOL/L (98-107); CREATININE 1.3 MG/DL (0.55-1.30); POTASSIUM 4.2 MMOL/L (3.5-5.1); SODIUM 137 MMOL/L (136-145)
[2019-05-04 07:57] VITALS: BP 130/71
[2019-05-04] MEDS: Aspirin EC 81mg tab ORAL SCH (08:01)
[2019-05-04] MEDS: Furosemide 40mg tab ORAL SCH (08:02)
[2019-05-04] MEDS: Lisinopril 20mg tab ORAL SCH (08:02)
[2019-05-04] MEDS: metFORMIN 500mg tab ORAL SCH (08:02)
[2019-05-04] MEDS: hydroCHLOROthiazide 25mg cap ORAL SCH (08:02)
[2019-05-04] MEDS: Carvedilol 25mg Tab ORAL SCH (08:02)
[2019-05-04] MEDS: Solu-MEDROL 125mg Inj IVP SCH (08:03)
--- NOTE | 2019-05-04 08:52 | Cardiology Progress Note ---
Assessment/Plan Status: doing well, stable Assessment/Plan Assessment/Plan Status: stable Assessment/Plan: Assessment 1. Acute COPD exacerbation. 2. Acute asthma. 3. Hypertension. 4. Comorbid obesity. 5. Congestive heart failure. 6. Diabetes Plan: Echocardiogram with normal LV function 60% Continue diuresis with lasix/HCTZ Monitor electrolytes pulmonary toilet Continue aspirin, coreg, lisinopril Serial CXR IV steroids for Asthma/COPD Outpatient stress test Dispo planning Subjective Cardiovascular: Reports: no symptoms Respiratory: Reports: no symptoms Gastrointestinal/Abdominal: Reports: no symptoms Genitourinary: Reports: no symptoms Subjective No acute events, on nasal canular, mild cough, no sob no CP. Echo reviewed, LVEF 60% and grade 1 diastolic dysfunction. Objective Last 24 Hour Vital Signs Date Time Temp Pulse Resp B/P (MAP) Pulse Ox O2 Delivery O2 Flow Rate FiO2 05/04/19 08:31 96.8 05/04/19 08:02 130/71 05/04/19 08:02 68 130/71 05/04/19 07:57 96.8 68 18 130/71 (90) 98 05/04/19 07:47 96 Nasal Cannula 3.0 32 05/04/19 04:31 97.7 74 20 121/73 (89) 94 05/04/19 04:13 73 05/04/19 00:29 97.7 73 20 138/70 (92) 91 05/04/19 00:04 75 05/03/19 21:20 77 115/53 05/03/19 21:00 Nasal Cannula 3.0 05/03/19 20:00 77 05/03/19 20:00 99.0 77 20 115/53 (73) 94 05/03/19 19:49 66 20 97 Nasal Cannula 3.0 32 05/03/19 19:45 94 Nasal Cannula 3.0 32 05/03/19 19:45 88 20 94 Nasal Cannula 3.0 32 05/03/19 16:00 98.1 73 20 128/70 (89) 98 05/03/19 15:34 72 05/03/19 12:00 98.1 66 20 127/72 (90) 98 05/03/19 11:40 73 05/03/19 09:25 64 20 97 Nasal Cannula 2.0 28 66 20 92 05/03/19 09:24 66 20 97 Nasal Cannula 2.0 28 05/03/19 09:22 67 20 92 Nasal Cannula 2.0 28 05/03/19 09:21 92 Nasal Cannula 2.0 28 05/03/19 09:20 67 20 92 Nasal Cannula 2.0 28 05/03/19 09:00 Nasal Cannula 2.0 05/03/19 08:59 131/75 05/03/19 08:58 68 131/75 General Appearance: no apparent distress, alert EENT: PERRL/EOMI, normal ENT inspection, TMs normal, pharynx normal Neck: non-tender, normal alignment, supple, normal inspection, no JVD Rhythm: NSR Cardiovascular: normal peripheral pulses, normal rate, regular rhythm Respiratory/Chest: chest wall non-tender, lungs clear, no respiratory distress , expiratory wheezing Abdomen: normal bowel sounds, non tender, no organomegaly, no mass Extremities: normal range of motion, non-tender, normal inspection, no calf tenderness, no swelling Neurologic: security intern II-XII grossly normal, no motor/sensory deficits Intake and Output 05/03/19 05/04/19 19:00 07:00 Intake Total 140 ml Output Total 1300 ml 1600 ml Balance -1160 ml -1600 ml Intake Oral 140 ml Output Urine Total 1300 ml 1600 ml # Voids 3 # Bowel Movements 1 Laboratory Tests Test 05/03/19 15:05 05/04/19 05:45 White Blood Count 12.5 K/UL (4.8-10.8) H 11.9 K/UL (4.8-10.8) H Red Blood Count 4.59 M/UL (4.20-5.40) 4.68 M/UL (4.20-5.40) Hemoglobin 14.4 G/DL (12.0-16.0) 14.8 G/DL (12.0-16.0) Hematocrit 41.3 % (37.0-47.0) 41.6 % (37.0-47.0) Mean Corpuscular Volume 90 FL (80-99) 89 FL (80-99) Mean Corpuscular Hemoglobin 31.3 PG (27.0-31.0) H 31.6 PG (27.0-31.0) H Mean Corpuscular Hemoglobin Concent 34.8 G/DL (32.0-36.0) 35.5 G/DL (32.0-36.0) Red Cell Distribution Width 11.3 % (11.6-14.8) L 11.4 % (11.6-14.8) L Platelet Count 178 K/UL (150-450) 188 K/UL (150-450) Mean Platelet Volume 7.3 FL (6.5-10.1) 6.5 FL (6.5-10.1) Neutrophils (%) (Auto) % (45.0-75.0) % (45.0-75.0) Lymphocytes (%) (Auto) % (20.0-45.0) % (20.0-45.0) Monocytes (%) (Auto) % (1.0-10.0) % (1.0-10.0) Eosinophils (%) (Auto) % (0.0-3.0) % (0.0-3.0) Basophils (%) (Auto) % (0.0-2.0) % (0.0-2.0) Differential Total Cells Counted 100 Neutrophils % (Manual) 86 % (45-75) H Pending Lymphocytes % (Manual) 7 % (20-45) L Pending Monocytes % (Manual) 4 % (1-10) Eosinophils % (Manual) 0 % (0-3) Basophils % (Manual) 0 % (0-2) Band Neutrophils 3 % (0-8) Platelet Estimate Adequate Pending Platelet Morphology Normal Pending Red Blood Cell Morphology Normal Sodium Level 136 MMOL/L (136-145) 137 MMOL/L (136-145) Potassium Level 4.1 MMOL/L (3.5-5.1) 4.2 MMOL/L (3.5-5.1) Chloride Level 97 MMOL/L (98-107) L 99 MMOL/L (98-107) Carbon Dioxide Level 22 MMOL/L (21-32) 27 MMOL/L (21-32) Anion Gap 17 mmol/L (5-15) H 11 mmol/L (5-15) Blood Urea Nitrogen 29 mg/dL (7-18) H 29 mg/dL (7-18) H Creatinine 1.5 MG/DL (0.55-1.30) H 1.3 MG/DL (0.55-1.30) Estimat Glomerular Filtration Rate 42.7 mL/min (>60) 50.3 mL/min (>60) Glucose Level 394 MG/DL (74-106) H 278 MG/DL (74-106) #H Calcium Level 9.1 MG/DL (8.5-10.1) 9.4 MG/DL (8.5-10.1) Microbiology Date/Time Source Procedure Growth Status 05/01/19 14:05 Blood Blood Culture - Preliminary NO GROWTH AFTER 48 HOURS Resulted 05/01/19 13:51 Blood Blood Culture - Preliminary NO GROWTH AFTER 48 HOURS Resulted 05/01/19 14:06 Nasal Nares - Final Complete 05/01/19 14:06 Nasal Nares - Final Complete Matt Mckoy MD May 04, 2019 08:52
--- NOTE | 2019-05-04 08:57 | Pulmonology Progress Note ---
Assessment/Plan Assessment/Plan IMPRESSION: 1. Mild pulmonary edema. 2. Bronchial asthma. 3. Leukopenia. 4. Hypokalemia. DISCUSSION: ECHO shows diatolic dysfunction and pulmonary HTN Suspect due to untreated KEYON and HTN Continue diuresis Oupt PSG Added Robitussin Dc home Brad Grayson M.D. Subjective Interval Events: None new Constitutional: Reports: no symptoms HEENT: Repors: no symptoms Respiratory: Reports: no symptoms Cardiovascular: Reports: no symptoms Gastrointestinal/Abdominal: Reports: no symptoms Allergies: Coded Allergies: No Known Allergies (Unverified , 05/01/19) Objective Last 24 Hour Vital Signs Date Time Temp Pulse Resp B/P (MAP) Pulse Ox O2 Delivery O2 Flow Rate FiO2 05/04/19 08:31 96.8 05/04/19 08:02 130/71 05/04/19 08:02 68 130/71 05/04/19 07:57 96.8 68 18 130/71 (90) 98 05/04/19 07:47 96 Nasal Cannula 3.0 32 05/04/19 04:31 97.7 74 20 121/73 (89) 94 05/04/19 04:13 73 05/04/19 00:29 97.7 73 20 138/70 (92) 91 05/04/19 00:04 75 05/03/19 21:20 77 115/53 05/03/19 21:00 Nasal Cannula 3.0 05/03/19 20:00 77 05/03/19 20:00 99.0 77 20 115/53 (73) 94 05/03/19 19:49 66 20 97 Nasal Cannula 3.0 32 05/03/19 19:45 94 Nasal Cannula 3.0 32 05/03/19 19:45 88 20 94 Nasal Cannula 3.0 32 05/03/19 16:00 98.1 73 20 128/70 (89) 98 05/03/19 15:34 72 05/03/19 12:00 98.1 66 20 127/72 (90) 98 05/03/19 11:40 73 05/03/19 09:25 64 20 97 Nasal Cannula 2.0 28 66 20 92 3/16/20 09:24 20 Nasal Cannula 2.0 28 05/03/19 09:22 67 20 Nasal Cannula 2.0 28 05/03/19 09:21 92 Nasal Cannula 2.0 28 05/03/19 09:20 67 20 Nasal Cannula 2.0 28 05/03/19 09:00 Nasal Cannula 2.0 05/03/19 08:59 131/75 05/03/19 08:58 68 131/75 Intake and Output 05/03/19 05/04/19 19:00 07:00 Intake Total 140 ml Output Total 1300 ml 1600 ml Balance -1160 ml -1600 ml Intake Oral 140 ml Output Urine Total 1300 ml 1600 ml # Voids 3 # Bowel Movements 1 General Appearance: no acute distress HEENT: normocephalic Respiratory/Chest: chest wall non-tender Cardiovascular: normal peripheral pulses Abdomen: normal bowel sounds Microbiology Date/Time Source Procedure Growth Status 05/01/19 14:05 Blood Blood Culture - Preliminary NO GROWTH AFTER 48 HOURS Resulted 05/01/19 13:51 Blood Blood Culture - Preliminary NO GROWTH AFTER 48 HOURS Resulted 05/01/19 14:06 Nasal Nares - Final Complete 05/01/19 14:06 Nasal Nares - Final Complete Laboratory Tests 05/03/19 15:05: White Blood Count 12.5H, Red Blood Count 4.59, Hemoglobin 14.4, Hematocrit 41.3 , Mean Corpuscular Volume 90, Mean Corpuscular Hemoglobin 31.3H, Mean Corpuscular Hemoglobin Concent 34.8, Red Cell Distribution Width 11.3L, Platelet Count 178, Mean Platelet Volume 7.3, Neutrophils (%) (Auto) , Lymphocytes (%) (Auto) , Monocytes (%) (Auto) , Eosinophils (%) (Auto) , Basophils (%) (Auto) , Differential Total Cells Counted 100, Neutrophils % ( Manual) 86H, Lymphocytes % (Manual) 7L, Monocytes % (Manual) 4, Eosinophils % ( Manual) 0, Basophils % (Manual) 0, Band Neutrophils 3, Platelet Estimate Adequate, Platelet Morphology Normal, Red Blood Cell Morphology Normal, Sodium Level 136, Potassium Level 4.1, Chloride Level 97L, Carbon Dioxide Level 22, Anion Gap 17H, Blood Urea Nitrogen 29H, Creatinine 1.5H, Estimat Glomerular Filtration Rate 42.7, Glucose Level 394H, Calcium Level 9.1 05/04/19 05:45: White Blood Count 11.9H, Red Blood Count 4.68, Hemoglobin 14.8, Hematocrit 41.6 , Mean Corpuscular Volume 89, Mean Corpuscular Hemoglobin 31.6H, Mean Corpuscular Hemoglobin Concent 35.5, Red Cell Distribution Width 11.4L, Platelet Count 188, Mean Platelet Volume 6.5, Neutrophils (%) (Auto) , Lymphocytes (%) (Auto) , Monocytes (%) (Auto) , Eosinophils (%) (Auto) , Basophils (%) (Auto) , Neutrophils % (Manual) [Pending], Lymphocytes % (Manual) [Pending], Platelet Estimate [Pending], Platelet Morphology [Pending], Sodium Level 137, Potassium Level 4.2, Chloride Level 99, Carbon Dioxide Level 27, Anion Gap 11, Blood Urea Nitrogen 29H, Creatinine 1.3, Estimat Glomerular Filtration Rate 50.3, Glucose Level 278#H, Calcium Level 9.4 Current Medications Medications (Trade) Dose Ordered Sig/Gabby Route PRN Reason Start Time Stop Time Status Last Admin Dose Admin Acetaminophen (Tylenol) 650 mg Q4H PRN ORAL Mild Pain/Temp > 100.5 05/01/19 19:15 05/31/19 19:14 05/04/19 08:01 Acetaminophen/ Hydrocodone Bitart ([place] 10/325) 1 tab TIDPRN PRN ORAL Moderate Pain (Pain Scale 4-6) 05/01/19 17:30 05/08/19 17:29 05/03/19 21:21 Albuterol/ Ipratropium (Albuterol/ Ipratropium) 3 ml Q4H PRN HHN Shortness of Breath 05/01/19 17:30 05/06/19 17:29 05/03/19 09:28 Aspirin (Ecotrin) 81 mg DAILY ORAL 05/02/19 09:00 06/16/19 08:59 05/04/19 08:01 Atorvastatin Calcium (Lipitor) 10 mg BEDTIME ORAL 05/01/19 21:00 05/31/19 20:59 05/03/19 21:19 Carvedilol (Coreg) 25 mg EVERY 12 HOURS ORAL 05/01/19 21:00 05/31/19 20:59 05/04/19 08:02 Dextrose (Dextrose 50%) 25 ml Q30M PRN IV Hypoglycemia 05/02/19 01:15 06/01/19 01:14 Dextrose (Dextrose 50%) 50 ml Q30M PRN IV Hypoglycemia 05/02/19 01:15 06/01/19 01:14 Fluticasone Propionate (Flovent 110 mcg) 2 puff BIDRT INH 05/02/19 10:00 06/01/19 09:59 05/03/19 19:45 Furosemide (Lasix) 40 mg DAILY ORAL 05/03/19 11:45 06/02/19 11:44 05/04/19 08:02 Hydrochlorothiazide (Hydrodiuril) 25 mg DAILY ORAL 05/02/19 09:00 06/01/19 08:59 05/04/19 08:02 Insulin Aspart (NovoLOG) BEFORE MEALS AND HS SUBQ 05/02/19 06:30 06/01/19 06:29 05/04/19 05:38 Levothyroxine Sodium (Synthroid) 150 mcg ACBREAKFAST ORAL 05/02/19 06:30 06/01/19 06:29 05/04/19 05:34 Lisinopril (PriniviL) 20 mg DAILY ORAL 05/02/19 09:00 06/01/19 08:59 05/04/19 08:02 Metformin HCl (Glucophage) 500 mg TWICE A DAY ORAL 05/01/19 18:00 05/31/19 17:59 05/04/19 08:02 Methylprednisolone Sodium Succinate (Solu-MEDROL) 40 mg EVERY 12 HOURS IVP 05/03/19 21:00 06/02/19 20:59 05/04/19 08:03 Pantoprazole (Protonix) 40 mg DAILY ORAL 05/02/19 09:00 06/01/19 08:59 05/04/19 08:02 Brad Grayson MD May 04, 2019 08:57
[2019-05-04] MEDS ORDERED: SYNTHROID150 MCG ORAL (09:00)
[2019-05-04] MEDS ORDERED: METFORMIN HCL500 M1 ORAL (09:00)
[2019-05-04] MEDS ORDERED: ASPIR 8181 MG ORAL (09:00)
[2019-05-04] MEDS ORDERED: VENTOLIN HFA18 GM INH (09:00)
[2019-05-04] MEDS ORDERED: ATORVASTATIN CA10 MG ORAL (09:00)
[2019-05-04] MEDS ORDERED: FLOVENT2 PUFF2 INH (09:00)
[2019-05-04] MEDS ORDERED: OMEPRAZOLE40 M1 ORAL (09:00)
[2019-05-04] MEDS ORDERED: ROBITUSSIN COU118 M1 ORAL (09:00)
[2019-05-04] MEDS ORDERED: LISINOPRIL-HCT1 EAC2 ORAL (09:00)
[2019-05-04] MEDS ORDERED: FUROSEMIDE40 MG ORAL (09:00)
[2019-05-04] MEDS ORDERED: CARVEDILOL25 MG ORAL (09:00)
[2019-05-04] MEDS: Flovent 110mcg Inhaler - 12gm INH SCH (09:22)
--- NOTE | 2019-05-04 10:39 | Discharge Summary ---
Discharge Summary Hospital Course Date of Admission May 01, 2019 at 14:45 Date of Discharge 05/04/19 Admitting Diagnosis Shortness of Breath, Asthma Exacerbation HPI Anita Savage is a 64 year old female who was admitted on May 01, 2019 at 14:45 for Resp Distress, Hx Of Asthma Consultations Cardiology,Pulmonology Procedures None Hospital Course Ms. Savage is a 64 F with hx of CHF, HTN, asthma, COPD, presenting with acute COPD exacerbation. Treated with systemic steroids but no antibiotics. CXR with some pulm vascular congestion, started on oral Lasix. Her dyspnea and cough improved, she was discharged home in stable condition, cleared by Pulmonology. #Acute COPD exacerbation #Acute asthma exacerbation #chronic CHF #HTN #HLD #DM2 #GERD #Hypothyroidism Discharge Medications New Medications: Guaifenesin/D-Methorphan Hb/Pe (Robitussin Cough-Cold Cf Liq*) 118 Ml Liquid 10 ML ORAL Q8H PRN for 10 Days, #118 ML Furosemide* (Lasix*) 40 Mg Tablet 40 MG ORAL DAILY for 30 Days, #30 TAB Continued Medications: Albuterol Sulfate (Ventolin Hfa) 18 Gm Hfa.aer.ad 2 PUFFS INH EVERY 6 HOURS for ASTHMA for 30 Days, #18 GM 0 Refills (This prescription has been renewed) Aspirin* (Aspir 81*) 81 Mg Tablet.dr 81 MG ORAL DAILY for PROPHYLAXIS for 30 Days, #30 TAB (This prescription has been renewed) Atorvastatin Calcium* (Lipitor*) 10 Mg Tablet 10 MG ORAL BEDTIME for HLD for 30 Days, #30 TAB (This prescription has been renewed) Carvedilol* (Carvedilol*) 25 Mg Tablet 25 MG ORAL EVERY 12 HOURS for hypertension for 30 Days, #60 TAB (This prescription has been renewed) Fluticasone Propionate (Flovent Hfa) 12 Gm Aer.w.adap 1 PUFFS INH TWICE A DAY for ASHTMA for 30 Days, #1 EA 0 Refills (This prescription has been renewed) Levothyroxine Sodium* (Synthroid*) 150 Mcg Tablet 150 MCG ORAL DAILY for HYPOTHYROID for 30 Days, #30 TAB (This prescription has been renewed) Take in the morning on an empty stomach, at least 30 minutes before food. Lisinopril/Hydrochlorothiazide 20-25 Mg Tab (Lisinopril-Hctz 20-25 Mg Tab) 1 Each Tablet 1 TAB ORAL DAILY for HTN for 30 Days, #30 TAB (This prescription has been renewed) Metformin Hcl* (Metformin Hcl*) 500 Mg Tablet 500 MG ORAL TWICE A DAY for diabetes for 30 Days, #60 TAB (This prescription has been renewed) Omeprazole (Omeprazole) 40 Mg Capsule.dr 40 MG ORAL DAILY for GERD for 30 Days, #30 CAP (This prescription has been renewed) Discontinued Medications: Hydrocodone Bit/Acetaminophen 10-325* ([place] 10-325*) 1 Each Tablet 1 TAB ORAL TID PRN for For Pain, #10 TAB 0 Refills PRN PAIN Discharge Discharge Vital Signs Last Vital Signs Date Time Temp Pulse Resp B/P (MAP) Pulse Ox O2 Delivery O2 Flow Rate FiO2 05/04/19 09:22 62 16 96 Nasal Cannula 3.0 32 05/04/19 08:31 96.8 05/04/19 08:02 130/71 Discharge Disposition Patient was discharged to Home Discharge Diagnoses: (1) COPD exacerbation Dorian Mcgovern MD May 04, 2019 10:39
--- NOTE | 2019-05-04 11:27 | NUR ---
RD ASSESSMENT & RECOMMENDATIONS SEE CARE ACTIVITY FOR COMPLETE ASSESSMENT DAILY ESTIMATED NEEDS: Needs based on Obese, pulm 80kg abw 20-25 kcals/kg [id number] total kcals 1-1.5 g protein/kg 80-120 g total protein Fluid per MD, on lasix NUTRITION DIAGNOSIS: Obese etiology unknown, lifestyle factors? as evidenced by BMI >50, pt is 287% of [place] Body Weight. (CURRENT DIET:Cardiac/ CCHO med) PO DIET RECOMMENDATIONS--->>> Cardiac/ CCHO LOW diet (3 carbs/meal) + Double protein portions ADDITIONAL RECOMMENDATIONS: 1) Obtain a standing weight on diuretics as able Or Recalibrate bed scale daily 2) Monitor lytes daily, replete as needed rec B-complex qd 3) Consider long acting insulin while on solumedrol for glycemic control 4) Pt should remain sitting upright 1-2 hrs post meals
[2019-05-04 12:00] VITALS: BP 133/71
[2019-05-04] MEDS: HYDROcodone/Acetamin 10/325 tab ORAL PRN (12:02)
--- NOTE | 2019-05-04 12:50 | NUR ---
NURSE NOTES: pt has discharge order, all D/C assessments and instructions done and pt verbally know to understand all. pt is stable, V/S stable, all belongings checked with pt and they are with pt. pt has all Dr JEAN-BAPTISTE prescriptions and asked to take to her own pharmacy. pt know to see her primary MD and asked for PSG. RN asked Dr CHRISTOPHER about PSG but no answer. waiting for petey FRANK to pick pt up. will continue to monitor.
--- NOTE | 2019-05-04 12:58 | NUR ---
*-* INSURANCE *-* ALL AVAILABLE CLINICALS HAVE BEEN FAXED TO: [facility] P: [phone] F: [phone] & SAGAR DONOVAN FAX ALL CLINICLAS TO [phone]
--- NOTE | 2019-05-04 13:30 | NUR ---
NURSE NOTES: pt is stable, V/S stable, skin is intact, RN took pt with wheelchair out of hospital and pt left with accompany of niece.
--- NOTE | 2019-05-06 15:21 | NUR ---
*-* INSURANCE *-* DISCHARGE SUMMARY HAS BEEN FAXED [facility] P: [phone] F: [phone] & [facility] FAX ALL CLINICLAS TO [phone]
== END 2019-05-04 13:22 | disposition home or self-care (01) | DRG 140 ==
LOC: EDBD 11:32 → EMR 13:02 → EDBEDREQ 14:36 → 2E 14:45
DX: J44.1 Chronic obstructive pulmonary disease with (acute) exacerbation (principal); J45.998 Other asthma; Z68.43 Body mass index [BMI] 50.0-59.9, adult; I11.0 Hypertensive heart disease with heart failure; I50.9 Heart failure, unspecified; E66.01 Morbid (severe) obesity due to excess calories; K21.9 Gastro-esophageal reflux disease without esophagitis; E03.9 Hypothyroidism, unspecified; Z79.84 Long term (current) use of oral hypoglycemic drugs; E11.9 Type 2 diabetes mellitus without complications; E87.6 Hypokalemia
CPT/HCPCS: 36415; 71045; 80048; 80053; 81003; 82962; 83880; 84484; 85007; 85025; 85610; 85730; 86710; 87040; 93005; 93306; 94640; 94664; 96365; 96375; 99285; J1815; J7620; J8499